=== PATIENT | female | born 1985 | race African-American/Black ===

== ENCOUNTER 2020-05-08 08:53 | Emergency (ER) | payer OTHER, SELFPAY ==
[2020-05-08 09:02] VITALS: BP 142/78; PULSE 111; RESP 16; TEMP 36.8; O2SAT 100
--- NOTE | 2020-05-08 09:05 | ED.EAR ---
HPI - Ear Problem General Chief complaint: Ear Stated complaint: ear pain nausea Time Seen by Provider: 05/08/20 09:07 Source: patient and RN notes reviewed Mode of arrival: ambulatory Limitations: no limitations History of Present Illness HPI Narrative: 34 year old female who presents to [facility] care with complaints of pain to bilateral ears for the past 24 hours.Patient states that she awoke this morning with a sore throat and she has noted some nasal drainage. Patient denies any known fevers, chills or sweats, states no nausea or vomiting, denies any headache pain or any dizziness. Patient states that she took some Advil last evening but has not taken any medication today, Complaint: ear pain and other (sore throat) Location: bilateral Duration: constant Severity: moderate Relieving factors: nothing Exacerbating factors: other (swallowing) Discharge from ear: Reports no Associated symptoms ear: rhinorrhea and other (sore throat) Treatment prior to arrival: other (Advil) Related Data Home Medications Medication Instructions Recorded Confirmed medroxyprogesterone 150 mg IM [id number] 05/08/20 05/08/20 Allergies Allergy/AdvReac Type Severity Reaction Status Date / Time No Known Allergies Allergy Verified 05/08/20 09:06 Review of Systems Review of Systems: Narrative: CONSTITUTIONAL: Denies fever, chills, or sweats. EYES: Denies visual changes, redness, or discharge. ENT: Positive rhinorrhea, congestion, positive sore throat, bilateral otalgia. CARDIOVASCULAR: Denies chest pain, palpitations, or edema. RESPIRATORY: Denies cough or dyspnea. GASTROINTESTINAL: Denies abdominal pain, nausea, vomiting, or diarrhea. GENITOURINARY: Denies dysuria or hematuria. SKIN: Denies rash or itching. MUSCULOSKELETAL: Denies back pain, joint pain, or myalgia. NEUROLOGIC: Denies headache, numbness, or weakness. PSYCHIATRIC: Positive history of anxiety or depression. All systems reviewed & are unremarkable except as noted in HPI and below PMFSH Past Medical History Medical History (Updated 05/08/20 @ 09:34 by Radha Sheikh NP) Anxiety and depression Fracture of left foot Surgical History Surgical History (Updated 05/08/20 @ 09:11 by Radha Sheikh NP) H/O arthroscopy of right knee Previous section Social History Social History (Updated 05/08/20 @ 09:11 by Radha Sheikh NP) Smoking status: Never smoker Living arrangements: with family Gender identity (if verbalized by the patient): Female Comments At time of signature, agree with nursing past medical, surgical, social and family history. There is no relevant family history pertinent to the presenting complaint Exam Narrative: Exam Narrative: GENERAL: Well-appearing, well-nourished, and in no acute distress. HEAD: Normocephalic, atraumatic. EYES: PERRLA and EOMI. ENT: Nares red, clear rhinorrhea no epistaxis. Mucous membranes moist.TM's normal with decrease light reflex, no drainage or swelling of canals, throat red with exudates tonsils enlarged and red. NECK: Supple.no lymphadenopathy CHEST: Clear to auscultation. No respiratory distress.SAO2 100% on room air HEART: Regular rate and rhythm. No murmur heard. Normal peripheral pulses. ABDOMEN: Soft, nontender, nondistended, normal active bowel sounds. EXTREMITIES: Normal range of motion. No edema. SKIN: Warm, dry, no rash. NEURO: No focal deficits. Alert and oriented x3. Medical Decision Making Differential Diagnosis Differential Diagnosis: Bilateral ear otalgia,otitis media, otitis externa, tonsillitis, strep pharyngitis, exudative tonsillitis Medical Records Medical records reviewed: Yes I reviewed the patient's medical records. Lab Data Lab results reviewed: Yes I reviewed the patient's lab results. Lab results narrative: strep screen negative Critical Care Time Critical Care Time Critical Care Time: No Discharge Plan Discharge Clinical Impression: Exudative tonsillitis, Otalgia
[2020-05-08 09:07] VITALS: BP 142/78; PULSE 111; RESP 16; TEMP 36.8; O2SAT 100
== END 2020-05-08 09:45 | disposition home or self-care (01) ==
PROVIDERS: Emergency Provider Registered Nurse
DX: J03.90 Acute tonsillitis, unspecified (principal); H92.03 Otalgia, bilateral
CPT/HCPCS: 87081; 87880; 99213; G0463

== ENCOUNTER 2023-01-07 21:19 | Emergency (ER) | payer OTHER, SELFPAY ==
--- NOTE | 2023-01-07 21:26 | ED.DIZZY ---
HPI - Dizziness General Chief Complaint: Dizziness Stated Complaint: dizziness since 1500 Time Seen by Provider: 01/07/23 21:25 Source: patient and old records reviewed Mode of arrival: ambulatory Limitations: no limitations History of Present Illness HPI Narrative: Patient is a 37 y/o female who presents to the ED with c/o dizziness. Patient reports the dizziness began around 3pm today. She describes the dizziness as feeling lightheaded. Dizziness worse with movements, walking, sitting upright. Patient took a nap, but states when she woke up her dizziness was worse. Patient then developed a headache and nausea, which prompted her presentation. She has not tried anything for symptoms. She has been drinking water today. She denies any vision changes, focal weakness or numbness, vomiting. Patient is currently 13 weeks gestation. STEAM TRAP WORKER is Dr. Dumas. She has had confirmed IUP and recently saw Dr. Dumas at which time everything was normal. Patient mentions having similar dizziness when diagnosed with preeclampsia in her previous . She is not currently on any blood pressure medications, and reports her BP has been stable throughout this thus far. Patient denies abdominal pain, vaginal bleeding, leakage of fluid. Related Data Home Medications Medication Instructions Recorded Confirmed medroxyprogesterone 150 mg/mL 150 mg IM [id number] 05/08/20 05/08/20 intramuscular syringe Allergies Allergy/AdvReac Type Severity Reaction Status Date / Time lisinopril AdvReac Cough Verified 01/07/23 21:20 Review of Systems Review of Systems: CONSTITUTIONAL: Denies fever, chills, or sweats. EYES: Denies visual changes. CARDIOVASCULAR: Denies chest pain. RESPIRATORY: Denies dyspnea. GASTROINTESTINAL: See HPI. GENITOURINARY: Denies dysuria or hematuria. MUSCULOSKELETAL: Denies back pain, joint pain, or myalgia. NEUROLOGIC: See HPI. All systems reviewed & are unremarkable except as noted in HPI and below PMFSH Past Medical History Medical History Anxiety and depression Fracture of left foot Surgical History Surgical History H/O arthroscopy of right knee Previous section Social History Social History Smoking status: Never smoker Living arrangements: with family Gender identity (if verbalized by the patient): Female Exam Narrative: GENERAL: Well appearing, morbidly obese with BMI of 40.3, non-toxic, in no acute distress. HEAD: Normocephalic, atraumatic. EYES: PERRL/EOMI, conjunctivae clear bilaterally. No nystagmus. EARS: TMS clear, with good light reflex. No erythema or bulging. No cerumen impaction. NECK: Supple. No adenopathy, no masses. RESPIRATORY: Airway patent, respirations nonlabored. Clear to auscultation bilaterally, no rales, rhonchi, wheezing. CARDIOVASCULAR: Regular rate and rhythm without murmurs, rubs, or gallops. Radial pulses 2+ and equal bilaterally. ABDOMINAL: Soft, no tenderness throughout abdomen, nondistended, no hepatosplenomegaly. Normoactive BS. MUSCULOSKELETAL: Moves all extremities. Strength/ROM intact without gross deformities. No edema. SKIN: Warm, dry, normal color. No rashes. NEURO: A&O X3. Speech clear. Follows commands. CN II-XII intact. Sensation grossly intact. Steady gait. No ataxic movements. Strength 5/5 in upper and lower extremities bilaterally. Equal member certification manager strength bilaterally. No focal deficits. PSYCHIATRIC: Appropriate mood and affect. Normal interaction. Course Vital Signs Vital signs: Vital Signs Pulse Rate 82 01/07/23 21:29 Blood Pressure 131/89 01/07/23 21:29 Temperature 98 F 01/07/23 22:38 Pulse Rate 71 01/08/23 00:41 Respiratory Rate 16 01/08/23 00:41 Blood Pressure 142/74 H 01/08/23 00:41 Pulse Oximetry 100 01/08/23 00:41
[2023-01-07 21:29] VITALS: BP 131/89; PULSE 82
[2023-01-07 21:30] VITALS: BP 118/86; PULSE 88
[2023-01-07 21:32] VITALS: BP 132/95; PULSE 89
[2023-01-07 21:54] VITALS: PULSE 77
[2023-01-07] MEDS: METOCLOPRAMIDE HCL INJ 10 MG/2 ML VIAL IV PUSH (22:29)
[2023-01-07] MEDS: ACETAMINOPHEN 325 MG TABLET 650 MG PO (22:29)
[2023-01-07] MEDS: SODIUM CHLORIDE 0.9% IV 1,000 ML 999 ML IV CONT ×2 (22:30→22:36)
[2023-01-07] MEDS: MECLIZINE HCL 25 MG TABLET PO (22:36)
[2023-01-07 22:38] VITALS: BP 130/95; PULSE 86; RESP 18; TEMP 36.6; O2SAT 100
[2023-01-08 00:41] VITALS: BP 142/74; PULSE 71; RESP 16; O2SAT 100
== END 2023-01-08 00:42 | disposition home or self-care (01) ==
PROVIDERS: Emergency Provider Physician Assistant; PCP Obstetrics & Gynecology
DX: O99.411 Diseases of the circulatory system complicating pregnancy, first trimester (principal); I95.1 Orthostatic hypotension; R42 Dizziness and giddiness; O09.521 Supervision of elderly multigravida, first trimester; Z3A.13 13 weeks gestation of pregnancy
CPT/HCPCS: 96361; 96374; 99284; A9270; J2765; J7030

== ENCOUNTER 2023-05-21 15:30 | Outpatient (RCR) | payer OTHER, MEDICAID, SELFPAY ==
[2023-05-12 13:30] VITALS: BMI 43.3
[2023-05-12 15:54] VITALS: BMI 43.3
== END 2023-07-27 09:47 | disposition home or self-care (01) ==
LOC: ANHDMC 15:30
PROVIDERS: PCP Obstetrics & Gynecology; Visit Provider Obstetrics & Gynecology
DX: O24.319 Unspecified pre-existing diabetes mellitus in pregnancy, unspecified trimester (principal); Z3A.00 Weeks of gestation of pregnancy not specified; Z71.3 Dietary counseling and surveillance; Z71.89 Other specified counseling
CPT/HCPCS: 97802; G0108

== ENCOUNTER 2023-06-11 12:30 | Outpatient (RCR) | payer OTHER, MEDICAID, SELFPAY ==
[2023-05-27 17:10] VITALS: BP 139/79; PULSE 79
[2023-06-03 15:57] VITALS: BP 121/89; PULSE 92
[2023-06-11 13:12] VITALS: BP 139/97; PULSE 83
== END 2023-08-25 23:59 | disposition home or self-care (01) ==
LOC: ANHOBOP 12:30
PROVIDERS: Visit Provider Obstetrics & Gynecology
DX: O24.419 Gestational diabetes mellitus in pregnancy, unspecified control (principal); O16.3 Unspecified maternal hypertension, third trimester; Z3A.33 33 weeks gestation of pregnancy; Z3A.34 34 weeks gestation of pregnancy; Z3A.35 35 weeks gestation of pregnancy
CPT/HCPCS: 59025; A9270

== ENCOUNTER 2023-06-12 09:33 | Inpatient (IN) | payer OTHER, MEDICAID, SELFPAY ==
[2023-06-12] VITALS (43 sets, daily range): BP systolic 101–164; BP diastolic 54–124; PULSE 70–107; RESP 14–20; TEMP 36.4–36.7; O2SAT 97–100; BMI 44.2
--- NOTE | 2023-06-12 10:53 | LDADM ---
This patient, Skyla Diaz, was admitted to Labor/Delivery/Recovery 119 on 06/12/23 at 09:33. Plans for , pain management and were discussed with patient. Patient/family oriented to hospital policies and general routines including ID bracelet, bed and alarms, visiting hours, pain management, procedures, bathroom and other care routines, personal items, smoking policy, room service/diet and guest tray routines, infant security routines, and visiting hours. Patient/Family are encouraged to report perceived risks to care and to ask questions if they do not understand what they are told or what they should do. See [facility]BIX for further documentation.
[2023-06-12 10:58] LABS: Basophils Percent Auto 0.2 % (0.2-1.2); Eosinophils Percent Auto 0.3 % (0-4.4); Hematocrit 40.3 % (37.0-47.0); Hemoglobin 12.8 g/dL (12.0-15.0); Immature Granulocyte Absolute 0.03 K/mm3 (0.00-0.031); Immature Granulocyte Percent A 0.5 % (0-0.5); Lymphocytes Absolute Auto 1.67 K/mm3 (0.9-3.2); Lymphocytes Percent Auto 28.7 % (18.3-44.2); Mean Corpuscular HGB Conc 31.8 g/dl (32-36); Mean Corpuscular Hemoglobin 28.7 pg (26-34); Mean Corpuscular Volume 90.4 fl (80-100); Mean Platelet Volume 11.6 fl (7.4-10.4); Monocytes Absolute Auto 0.5 K/mm3 (0.1-0.6); Monocytes Percent Auto 7.9 % (2.6-8.5); Neutrophils Absolute Auto 3.6 K/mm3 (1.3-6.7); Neutrophils Percent Auto 62.4 % (45.5-73.1); Platelet Count Result 223 k/mm3 (150-375); Red Blood Count 4.46 M/mm3 (4.2-5.4); Red Cell Distribution Width 13.8 % (11.5-14.5); White Blood Count 5.8 K/mm3 (4.5-10.0)
[2023-06-12] MEDS: AZITHROMYCIN 500 MG/NS 250 ML 500 MG/250 ML BAG 250 MG IVPB (11:00)
[2023-06-12] MEDS: LACTATED RINGERS 1,000 ML 125 ML IV CONT (11:00)
[2023-06-12 11:14] LABS: Uric Acid 6.3 mg/dL (2.5-7.5)
[2023-06-12 11:15] LABS: Alanine Aminotransferase 13 U/L (6-35); Albumin Level 3.6 g/dL (3.5-5.1); Alkaline Phosphatase 226 U/L (38-126); Anion Gap 7 mmol/L (8-16); Aspartate Amino Transferase 22 U/L (14-36); Bilirubin,Total 0.5 mg/dL (0.2-1.3); Blood Urea Nitrogen 5 mg/dL (7-17); Carbon Dioxide 22 mmol/L (22-30); Chloride 108 mmol/L (98-107); Estimated CRCL calculation 126 ml/min; Estimated Glomerular Filt Rate > 60; Glucose 90 mg/dL (65-110); Potassium 4.2 mmol/L (3.4-5.0); Sodium 137 mmol/L (137-145)
[2023-06-12] MEDS: ONDANSETRON INJ 4 MG/2 ML VIAL IV PUSH (11:33)
[2023-06-12] MEDS: FAMOTIDINE 20 MG/2 ML VIAL IV PUSH (11:33)
[2023-06-12 11:58] LABS: Rapid Plasma Reagin Non-Reactive (NonReactive)
--- NOTE | 2023-06-12 12:02 | PM.IMHP ---
H&P: HPI History of Present Illness Date/Time: 06/12/23 12:02 Chief Complaint: Water broke Narrative: 37 y/o at 35 3/7 weeks with a gush of fluid at 0800 today. GDM, diet controlled. CHTN, on ASA 81 mg daily. SROM confirmed with [facility] here on L&D. Prior , desires repeat. Review of Systems Review of Systems: All systems reviewed & are unremarkable except as noted in HPI and below PMFSH Past Medical History Medical History (Updated 06/12/23 @ 12:06 by Miguel Dumas MD) Anxiety and depression Fracture of left foot Surgical History Surgical History (Updated 06/12/23 @ 12:06 by Miguel Dumas MD) H/O arthroscopy of right knee Previous section Family History Family History Other Patient denies significant medical history Social History Social History Smoking status: Never smoker Substance use: never Do You Feel Safe in your Home?: Yes Lack of Transportation: No Lack of Food: Never True Current Housing: I Have Housing Concerned About Future Housing: No Difficulty Paying Gas/Electric Bills: No Difficulty Paying for Meds: No Currently Unemployed: No Education: Bachelor's Degree Difficulty w/ Childcare or Family Care: No Living arrangements: with family Gender identity (if verbalized by the patient): Female Spiritual care concerns: No Meds Home Medications and Allergies Home Medications Medication Instructions Recorded Confirmed Type aspirin 81 mg chewable tablet 81 mg PO DAILY 05/27/23 06/12/23 History vit no.95-ferrous 1 tablet PO DAILY 05/27/23 06/12/23 History fumarate 28 mg-folic acid 800 mcg tablet () Allergies Allergy/AdvReac Type Severity Reaction Status Date / Time lisinopril AdvReac Cough Verified 06/11/23 12:52 Vital Signs Vital Signs - 24 hr 06/12/23 10:47 06/12/23 11:01 06/12/23 11:16 Pulse Rate 98 105 H Blood Pressure 159/106 H 153/97 H Oxygen Delivery Room Air 06/12/23 11:31 06/12/23 11:46 06/12/23 12:01 Pulse Rate 96 90 90 Blood Pressure 154/91 H 157/93 H 160/88 H Oxygen Delivery Exam Const: Orientation/consciousness: patient oriented x3 Other: Well-developed, well-nourished female in no acute distress. Neck: Thyroid: thyroid normal Lymphatic: no lymphadenopathy noted (in neck, axilla or inguinal nodes) Resp: Effort & Inspection: normal respiratory effort Auscultation: clear to auscultation bilaterally Cardio: Rate: regular rate Rhythm: regular rhythm Heart sounds: S1 normal heart sound present and S2 normal heart sound present GI: Other: ABD: Soft, nontender, nondistended, gravid. NST reactive. TOCO: irregular contractions. No guarding or rebound tenderness. No hepatosplenomegaly. : General: Yes no CVA tenderness Other: Deferred. Back/Spine/Pelvis: Back: no CVA tenderness Skin: General skin exam: normal color and no rashes or lesions noted Neuro: General: patient oriented x3 Extrem: Other: Extremities: nontender with no edema Psych: Mental Status: mental status grossly normal Affect: normal affect H&P: Results Labs Labs: Short CBC 06/12/23 Range/Units 10:47 WBC 5.8 (4.5-10.0) K/mm3 Hgb 12.8 (12.0-15.0) g/dL Hct 40.3 (37.0-47.0) % Plt Count 223 (150-375) k/mm3 BMP 06/12/23 10:47 Sodium 137 Potassium 4.2 Chloride 108 H Carbon Dioxide 22 BUN 5 L Creatinine 0.60 L Glucose 90 Calcium 9.0 Liver Function 06/12/23 Range/Units 10:47 Total Bilirubin 0.5 (0.2-1.3) mg/dL AST 22 (14-36) U/L ALT 13 (6-35) U/L Alkaline Phosphatase 226 H (38-126) U/L Albumin 3.6 (3.5-5.1) g/dL Assessment and Plan Assessment and plan (1) PROM (premature rupture of membranes): Code(s): O42.90 - Premature rupture of membranes, unspecified as
--- NOTE | 2023-06-12 12:07 | WPDHPUPDATE1 ---
History and Physical Update Update Date/Time: 06/12/23 12:07 History and Physical has been reviewed, including an updated exam of the patient. There are NO changes in the patient's condition. Risks, benefits, and alternatives have been discussed and questions answered. Patient agrees to proceed with procedure.
[2023-06-12] MEDS: ceFAZolin 2 GM/D5W 50 ML 2 GM/50 ML BAG IVPB (12:18)
[2023-06-12] MEDS: KETOROLAC 30 MG/ML VIAL (*BKC) 15 MG IV PUSH (13:10)
--- NOTE | 2023-06-12 13:19 | W.PM.OBCSD ---
OB - Delivery Note Procedure Delivery date: 06/12/23 Pre-op diagnosis: Previous Delivery and Other (IUP at 35 3/7 weeks; SROM; Prior delivery; A1DM; CHTN) Post-op Diagnosis: Same Induction method: None Delivery monitor: External FHT and External Uterine Procedure Performed: Repeat Surgeon: Miguel Dumas MD Anesthesia type: Spinal Description of Procedure/Findings: Findings: Normal-appearing uterus, tubes and ovaries. Techniques: The patient was taken to the operating room where she was prepared and draped in the usual sterile fashion in dorsal supine position with a leftward tilt. She received cefazolin preoperatively. Spinal anesthesia was found to be adequate. A Pfannenstiel skin incision was made along the previous scar line and was carried through to the underlying layer of the fascia. The fascia was incised in the midline and the incision was extended laterally. The fascia was dissected free of the underlying rectus muscles. The rectus muscles were in the midline. The peritoneum was identified, tented up and entered sharply. The peritoneal incision was extended superiorly and inferiorly with good visualization of the bladder. The bladder blade was placed. The vesicouterine peritoneum was identified, tented up and entered sharply. The incision was extended laterally and the bladder flap was developed. The bladder blade was replaced. The uterus was then incised sharply in a transverse fashion along the lower uterine segment. The incision was extended laterally. The infant's head was delivered atraumatically to the sterile field, followed by the body. The nose and mouth were bulb suctioned. After a delay, the cord was clamped and cut. The was handed off the field. Cord blood was collected. The placenta was removed manually and was passed off the field. The uterus was exteriorized and cleared of all clots and debris. The uterine incision was reapproximated using 0 Monocryl in a running, locked fashion. Excellent hemostasis resulted as did excellent reapproximation of the normal anatomy. The uterus was returned the abdomen. The pelvis was irrigated copiously with warmed normal saline. Rigorous hemostasis was assured. The fascial layer was reapproximated using 0 Vicryl in a running fashion. The skin was closed with a running, subcuticular stitch of 4 0 Vicryl. Dermaflex was applied externally. Sponge, lap, needle and instrument counts were correct. The patient was taken to the recovery room in stable condition. The went to the nursery in stable condition. I was present and scrubbed the entire procedure. Specimen: Yes (cord blood, placenta) Estimated Blood Loss: 200 Drains: Yes (chung) Packing: No Pathology: Yes (Cord blood, placenta) Complications: None Condition: Stable Disposition: PACU [place] Baby Date of : 06/12/23 Time of : 12:48 Weeks of gestation at delivery: 35 gender: Male Weight (pounds): 8 Weight (ounces): 2 presentation: vertex Placenta delivery description: Manual Removal and Normal Configuration Cord Vessel Description: 3 Vessels and Nuchal Cord score one minute: 9 score five minutes: 9
--- NOTE | 2023-06-12 13:24 | PM.OBDSVD ---
DS: Admitting Diagnosis Discharge Date 06/16/23 Admitting Diagnosis IUP at 35 3/7 weeks SROM Prior , desires repeat A1DM CHTN DS: Discharge Diagnosis Discharge Diagnosis (1) Obesity affecting : Code(s): O99.210 - Obesity complicating , unspecified trimester Status: Acute (2) Chronic hypertension affecting : Code(s): O10.919 - Unspecified pre-existing hypertension complicating , unspecified trimester Status: Acute (3) Gestational diabetes mellitus: Code(s): O24.419 - Gestational diabetes mellitus in , unspecified control Status: Acute (4) Previous section: Code(s): Z98.891 - History of uterine scar from previous surgery Status: Acute (5) PROM (premature rupture of membranes): Code(s): O42.90 - Premature rupture of membranes, unspecified as to length of time between rupture and onset of labor, unspecified weeks of gestation Status: Acute OB - DS: Summary OB Procedures : NST OB Procedures Intrapartum: OB Procedures: : None Peripartum Data Procedures: Procedures Operation Date: 06/12/23 12:00 <No data on this case meets the specified criteria> Repeat LTCS Time Spent with Patient Time attestation: Total time spent providing and/or coordinating discharge services: DS: Data Data Completed and Pending Pending studies at discharge: Pending at discharge 06/12/23 12:53 Surgical [PTH] Routine Labs on day of discharge: Labs from last 24 hours 06/12/23 10:47 WBC 5.8 RBC 4.46 Hgb 12.8 Hct 40.3 MCV 90.4 MCH 28.7 MCHC 31.8 L RDW 13.8 Plt Count 223 MPV 11.6 H Immature Gran % (Auto) 0.5 Neut % (Auto) 62.4 Lymph % (Auto) 28.7 [place] % (Auto) 7.9 Eos % (Auto) 0.3 Baso % (Auto) 0.2 Lymph # (Auto) 1.67 [place] # (Auto) 0.5 Eos # (Auto) 0.0 Baso # (Auto) 0.0 Abs Immat Gran (auto) 0.03 Absolute Neuts (auto) 3.6 Absolute Nucleated RBC 0.0 Nucleated RBC % 0.0 Sodium 137 Potassium 4.2 Chloride 108 H Carbon Dioxide 22 Anion Gap 7 L BUN 5 L Creatinine 0.60 L Estim Creat Clear Calc 126 Estimated GFR > 60 Glucose 90 Uric Acid 6.3 Calcium 9.0 Total Bilirubin 0.5 AST 22 ALT 13 Alkaline Phosphatase 226 H Total Protein 7.0 Albumin 3.6 RPR Pending Blood Type O Positive Antibody Screen Negative Discharge Plan Discharge Attending physician on discharge: Miguel Dumas Discharging Clinician: Miguel Dumas Patient Disposition: Home, Self-Care Activity: may shower, may drive after 2 weeks and pelvic rest Diet: regular Wound Care Instructions: incision open to air Discharge Instructions: Call or return if temperature above 100.4? F, increased abdominal pain, increased vaginal bleeding or any new problems. Stand Alone Forms: General Discharge Information Follow-up/Referrals: Miguel Dumas MD [Physician] - 4 Weeks Discharge Medications: New ibuprofen 600 mg tablet 600 mg PO Q6H PRN (Reason: cramps) Qty: 30 0RF hydrocodone-acetaminophen 5-325 mg tablet 1 - 2 tablet PO Q6H PRN (Reason: pain) Qty: 30 0RF nifedipine [Procardia XL] 60 mg tablet extended release 24hr 60 mg PO BID Qty: 60 1RF Continued PNV cmb#95-ferrous fumarate-FA [] 28 mg iron- 800 mcg Tablet 1 tablet PO DAILY Discontinued aspirin 81 mg Tablet,Chewable 81 mg PO DAILY Date of admission: 06/12/23 09:33 Primary Care Provider: PHYSICIAN,YEAST STACKER Admitting Provider: Miguel Dumas Attending physician on admission: Miguel Dumas Condition: Stable
[2023-06-12] MEDS: LIDOCAINE 5% PATCH 1 PATCH TRANSDERM (14:37)
[2023-06-12] MEDS: MORPHINE SULFATE (*CRX) 2 MG/ML INJ IV PUSH (14:43)
[2023-06-12] MEDS: OXYTOCIN 30 UNITS/NS 500 ML 30 UNITS/500 ML BAG 125 UNITS IV CONT (15:54)
[2023-06-12] MEDS: diphenhydrAMINE HCl INJ 50 MG/ML VIAL 25 MG IV PUSH (18:13)
[2023-06-13] VITALS (8 sets, daily range): BP systolic 146–172; BP diastolic 86–97; PULSE 75–93; RESP 16–18; TEMP 36.5–36.9; O2SAT 98–100
[2023-06-13] MEDS: NIFEdipine 10 MG CAPSULE PO (01:27)
[2023-06-13 05:43] LABS: Basophils Percent Auto 0.3 % (0.2-1.2); Eosinophils Percent Auto 0.2 % (0-4.4); Hemoglobin 11.9 g/dL (12.0-15.0); Immature Granulocyte Absolute 0.06 K/mm3 (0.00-0.031); Immature Granulocyte Percent A 0.5 % (0-0.5); Lymphocytes Absolute Auto 1.86 K/mm3 (0.9-3.2); Lymphocytes Percent Auto 15.7 % (18.3-44.2); Mean Corpuscular HGB Conc 31.3 g/dl (32-36); Mean Corpuscular Hemoglobin 28.5 pg (26-34); Mean Corpuscular Volume 90.9 fl (80-100); Monocytes Absolute Auto 1.1 K/mm3 (0.1-0.6); Monocytes Percent Auto 9.6 % (2.6-8.5); Neutrophils Absolute Auto 8.7 K/mm3 (1.3-6.7); Neutrophils Percent Auto 73.7 % (45.5-73.1); Platelet Count Result 217 k/mm3 (150-375); Red Blood Count 4.18 M/mm3 (4.2-5.4); Red Cell Distribution Width 13.7 % (11.5-14.5); White Blood Count 11.9 K/mm3 (4.5-10.0)
[2023-06-13] MEDS: SIMETHICONE 80 MG TAB.CHEW PO ×2 (07:35→15:35)
[2023-06-13] MEDS: MULTIVIT/MIN/PREN/FOL AC/IRON TABLET 1 TAB PO (07:35)
[2023-06-13] MEDS: IBUPROFEN 600 MG TABLET PO ×2 (07:36→15:37)
[2023-06-13] MEDS: DOCUSATE SODIUM 100 MG CAPSULE PO ×2 (07:36→15:35)
[2023-06-13] MEDS: NIFEdipine 30 MG TAB.ER.24 PO ×2 (07:37→19:21)
--- NOTE | 2023-06-13 08:05 | P.PNOB_ITS ---
OB - PN: Subj Subjective Date/time seen: 06/13/23 08:05 Patient comments: no complaints and pain well controlled baby status: doing well OB - PN: Obj Data Labs 06/13/23 05:25 06/12/23 10:47 Labs: Laboratory Results - last 24 hr 06/12/23 06/13/23 10:47 05:25 WBC 5.8 11.9 H RBC 4.46 4.18 L Hgb 12.8 11.9 L Hct 40.3 38.0 MCV 90.4 90.9 MCH 28.7 28.5 MCHC 31.8 L 31.3 L RDW 13.8 13.7 Plt Count 223 217 MPV 11.6 H 11.0 H Immature Gran % (Auto) 0.5 0.5 Neut % (Auto) 62.4 73.7 H Lymph % (Auto) 28.7 15.7 L [place] % (Auto) 7.9 9.6 H Eos % (Auto) 0.3 0.2 Baso % (Auto) 0.2 0.3 Lymph # (Auto) 1.67 1.86 [place] # (Auto) 0.5 1.1 H Eos # (Auto) 0.0 0.0 Baso # (Auto) 0.0 0.0 Abs Immat Gran (auto) 0.03 0.06 H Absolute Neuts (auto) 3.6 8.7 H Absolute Nucleated RBC 0.0 0.0 Nucleated RBC % 0.0 0.0 Sodium 137 Potassium 4.2 Chloride 108 H Carbon Dioxide 22 Anion Gap 7 L BUN 5 L Creatinine 0.60 L Estim Creat Clear Calc 126 Estimated GFR > 60 Glucose 90 Uric Acid 6.3 Calcium 9.0 Total Bilirubin 0.5 AST 22 ALT 13 Alkaline Phosphatase 226 H Total Protein 7.0 Albumin 3.6 RPR Non-reactive Blood Type O Positive Antibody Screen Negative OB - PN A/P Time Spent With Patient Time: Total time spent is greater than 50% in coordination of care (as documented) at patient's floor/unit and/or counseling patient: Exam Narrative: inc c/d/i fundus firm, nt
--- NOTE | 2023-06-13 09:53 | WPDANLDPN2 ---
Anes-Prog Note L&D Date/Time: 06/13/23 09:53 Comfortable throughout: section Neuraxial method: spinal Epidural/Spinal procedure site: clean & non-tender Neuro status: Neuro function grossly intact. Cardiovascular status: normal Respiratory status: normal Airway patency: baseline Mental status: baseline Post-Op hydration status: normal Vital Signs: Last Vital Signs Temp 98.4 F 06/13/23 00:00 Pulse 93 06/13/23 00:00 Resp 18 06/13/23 00:00 BP 153/93 H 06/13/23 05:56 Pulse Ox 98 06/13/23 00:00 O2 Del Method Room Air 06/12/23 13:21 Pain score (VAS): 3 I/O: Intake & Output 06/12/23 06/13/23 06/13/23 23:59 07:59 15:59 Output Total 200 600 Balance -200 -600 Post-procedural complaints: pruritis moderate, treatment effective Patient feedback: Patient satisfied with anesthetic care.
--- NOTE | 2023-06-13 09:54 | WPDANLDNPN2 ---
Anes-Prog Note L&D-Neuraxial Date/Time: 06/13/23 09:54 Neuraxial medications: intrathecal PF morphine Opiod-related complaints: pruritis moderate, treatment effective Patient feedback: Patient satisfied with post-operative pain management.
[2023-06-13] MEDS: HYDROcodone/acetaminophen (*CRX) 5-325 MG TABLET 1 TAB PO (15:36)
[2023-06-14] VITALS (9 sets, daily range): BP systolic 143–163; BP diastolic 88–101; PULSE 88–107; RESP 18; TEMP 36.1–36.6; O2SAT 97–100
[2023-06-14] MEDS: SIMETHICONE 80 MG TAB.CHEW PO (03:22)
[2023-06-14] MEDS: IBUPROFEN 600 MG TABLET PO ×3 (03:22→18:38)
[2023-06-14] MEDS: HYDROcodone/acetaminophen (*CRX) 10-325 MG TABLET 1 TAB PO ×4 (03:24→15:35)
[2023-06-14] MEDS: ASPIRIN 81 MG CHEWABLE TABLET PO (07:53)
[2023-06-14] MEDS: MULTIVIT/MIN/PREN/FOL AC/IRON TABLET 1 TAB PO (07:53)
[2023-06-14] MEDS: DOCUSATE SODIUM 100 MG CAPSULE PO ×2 (07:54→15:37)
[2023-06-14] MEDS: NIFEdipine 30 MG TAB.ER.24 60 MG PO (08:54)
--- NOTE | 2023-06-14 09:41 | P.PNOB_ITS ---
OB - PN: Subj Subjective Date/time seen: 06/14/23 0825 Interval history: Doing well. Urinating without difficulty. Denies passing any large clots. Denies dizziness with ambulating. Tolerating po food and fluids. Bonding with infant. Baby well. Desires DC home. Discussed CHTN and BP medication. Patient comments: no complaints and pain well controlled baby status: doing well and nursing well [place] feeding status: exclusively breast feeding OB - PN: Obj Data Labs 06/13/23 05:25 06/12/23 10:47 OB - PN A/P Plan day: 2 Plan: routine care Time Spent With Patient Time: Total time spent is greater than 50% in coordination of care (as documented) at patient's floor/unit and/or counseling patient: Review of Systems Review of Systems: All systems reviewed & are unremarkable except as noted in HPI and below Exam Const: General: cooperative, no acute distress and awake Kahlil entation/consciousness: patient oriented x3 Limitations: no limitations Resp: Effort & Inspection: normal respiratory effort and able to speak in complete sentences Auscultation: clear to auscultation bilaterally Cardio: Rate: regular rate Peripheral pulses: Peripheral pulses 2+ throughout GI: Inspection: normal to inspection Auscultation: normal bowel sounds : General: Yes bladder normal to palpation Speculum Exam - Vagina: vagina l bleeding Bimanual exam- vagina & uterus: bladder normal to palpation OB/external & speculum: vaginal bleeding Other: Fundus firm Skin: General skin exam: normal color Other: Incision C/D/I Neuro: General: patient oriented x3 Cognition (Neuro): normal cognition Speech: normal speech Extrem: General: normal to inspection Psych: Appearance: grossly normal Mental Status: mental status grossly normal Speech and movement: Normal speech and movement present Affect: normal affect Attitude: cooperative Thought process: Normal thought process present
[2023-06-14] MEDS: ONDANSETRON HCL ODT 4 MG TABLET (12:22)
[2023-06-14] MEDS: LIDOCAINE 5% PATCH 1 PATCH TRANSDERM (13:19)
[2023-06-14] MEDS: HYDROcodone/acetaminophen (*CRX) 5-325 MG TABLET 1 TAB PO ×2 (18:38→23:51)
[2023-06-15] VITALS (8 sets, daily range): BP systolic 133–177; BP diastolic 72–101; PULSE 88–111; RESP 16–18; TEMP 36.9–37.1; O2SAT 98–100
[2023-06-15] MEDS: NIFEdipine 10 MG CAPSULE PO (00:29)
[2023-06-15] MEDS: ASPIRIN 81 MG CHEWABLE TABLET PO (07:38)
[2023-06-15] MEDS: NIFEdipine 30 MG TAB.ER.24 90 MG PO (07:39)
[2023-06-15] MEDS: DOCUSATE SODIUM 100 MG CAPSULE PO ×2 (07:39→15:29)
[2023-06-15] MEDS: MULTIVIT/MIN/PREN/FOL AC/IRON TABLET 1 TAB PO (07:40)
[2023-06-15] MEDS: HYDROcodone/acetaminophen (*CRX) 5-325 MG TABLET 1 TAB PO ×3 (07:40→23:17)
[2023-06-15] MEDS: IBUPROFEN 600 MG TABLET PO ×3 (07:41→23:18)
[2023-06-15] MEDS: SIMETHICONE 80 MG TAB.CHEW PO (07:41)
[2023-06-15] MEDS: LIDOCAINE 5% PATCH 1 PATCH TRANSDERM (07:45)
--- NOTE | 2023-06-15 12:30 | PM.OBPNVD ---
OB - PN: Subj Subjective Date/time seen: 06/15/23 12:31 Narrative: Pain OK. Tolerating diet. OB - PN: Obj Data Labs 06/13/23 05:25 06/12/23 10:47 OB - PN A/P Plan Comments: A: POD#3, doing well. HTN, on Procardia. P: Routine care. Plan home tomorrow. Exam Narrative: AVSS I/O OK ABD soft, nontender, fundus firm. Incision c/d/i. EXT nontender
--- NOTE | 2023-06-15 12:43 | PC.NURSE ---
[id number] Introductions were made, then consulted with patient to assess needs related to . Mother led the conversation with her?plans to feed?her infant and the?experience so far. Encouraged understanding of the benefits of skin to skin (demonstrating unwrapping and placing upright on her chest), stimulating with massage touch, changing positions to encourage wakefulness, how to watch for early feeding cues, responsive feeding, feeding on demand (aiming for 8-12 times in 24 hours, about every 2-3 hours), milk production, building/maintaining a milk supply, duration of feeding, signs of adequate intake/output and how to record on the feeding sheet. Mother works well with her with encouragement and education. Reviewed positioning and ear, shoulder, hip alignment, supporting the breast to facilitate a deep latch, asymmetrical latch (off-center), leading with the chin with a big, open, wide gape and body close to mother. Infant latched optimally to the left breast in cross cradle position. Education given to the mother of how to visualize the suckling (with good rocking jaw motion), swallows (dropping of the lower jaw) and how to listen for drinking at the breast (the ka sound) which infant demonstrated very well. Infant was able to maintain latch without pain to mother protecting the nipple with optimal positioning and latching. Reviewed comfort measures of healing with a warm, wet washcloth to rinse breast, then leave open to air-dry, good handwashing when or touching the breast/nipples to prevent infection. Mother voiced understanding of skin to skin, stimulating with massage touch, responsive feedings, hand expressed colostrum, talking to to encourage if it has been 2 -2.5 hours since the start of the last , to call if infant does not latch, difficulty waking to breastfeed, or if there is discomfort with . Resources used for education were facilitated with the visual educational handouts, demonstration of stimulating, tool, mom and baby guide. Inpatient/outpatient resources provided with feeding sheet, name written on the communication board, and the mom/baby guide. Parents voiced understanding of information, demonstrated learning and will call if there is a request for assistance.
[2023-06-15] MEDS: NIFEdipine 30 MG TAB.ER.24 PO (20:30)
[2023-06-16 00:30] VITALS: BP 158/97
[2023-06-16] MEDS: HYDROcodone/acetaminophen (*CRX) 5-325 MG TABLET 1 TAB PO ×4 (05:40→21:20)
[2023-06-16] MEDS: IBUPROFEN 600 MG TABLET PO ×2 (05:41→16:44)
[2023-06-16 07:50] VITALS: BP 148/93; PULSE 97; RESP 16; TEMP 36.7; O2SAT 98
--- NOTE | 2023-06-16 09:06 | PM.OBPNVD ---
OB - PN: Subj Subjective Date/time seen: 06/16/23 09:06 Narrative: Pain OK. Tolerating diet. Baby will stay tonight. OB - PN: Obj Data Labs 06/13/23 05:25 06/12/23 10:47 OB - PN A/P Plan Comments: A: POD#4, doing well. BP better. P: Home to f/u 4 weeks. Exam Narrative: AVSS ABD soft, nontender, fundus firm. Incision c/d/i. EXT nontender
[2023-06-16] MEDS: DOCUSATE SODIUM 100 MG CAPSULE PO ×2 (09:09→16:44)
[2023-06-16] MEDS: LIDOCAINE 5% PATCH 1 PATCH TRANSDERM (09:10)
[2023-06-16] MEDS: NIFEdipine 30 MG TAB.ER.24 60 MG PO ×2 (09:10→21:20)
[2023-06-16] MEDS: MULTIVIT/MIN/PREN/FOL AC/IRON TABLET 1 TAB PO (09:10)
--- NOTE | 2023-06-16 11:47 | PC.NURSE ---
Patient viewed the discharge video Mother & Baby Care, The First Two Weeks . Patient was given the opportunity and encouraged to ask questions. Patient verbalized understanding of information shared and has been given the mother/baby guide for home reference.
[2023-06-16 12:21] VITALS: BP 157/92; PULSE 100; RESP 18; TEMP 36.6; O2SAT 100
--- NOTE | 2023-06-16 14:23 | PC.NURSE ---
[id number] Purposefully rounded to assess needs related to . Discussed with mother her successes, concerns and any questions she has. We reviewed working with the infant, supporting breast, protecting her nipples with an optimal deep latch, good positioning, and good hand washing. Encouraged understanding the benefits of skin to skin, responding to feeding cues, frequencies of feeding 8-12 times in 24 hours (approximately 2-3 hours), duration of feedings, milk production, intake/output feeding sheet and signs of adequate intake encouraging swallowing at the breast. Mother independently latched infant optimally to the left breast in cradle position. We reviewed the risks and benefits of bottle/formula feeding in the early days and how to protect the breast milk supply. Education given to the mother of how to visualize the suckling (with good rocking jaw motion) swallows (dropping of the lower jaw) and how to listen for drinking at the breast (the ka sound) with demonstrated. The was able to maintain latch without discomfort to mother. Nipple care reviewed with optimal latch, good positioning and using clean hands when touching her breast. Resources used to facilitate learning were used from the visual handout for paced bottle feeding, pumping, and education on how to know if infant is getting enough. Parents voiced understanding of the education shared, to call for assistance if the does not latch, difficulty waking to breastfeed, or if there is discomfort with .
[2023-06-16 19:10] VITALS: BP 143/86; PULSE 98; RESP 18; TEMP 36.6; O2SAT 98
--- NOTE | 2023-06-17 09:37 | PC.NURSE ---
0800- In patient room to perform follow up appointment. Patient Quiet upon assessment, answering questions with only yes and no answers. Half way through assessment Dr. Anton entered room to give update about infant plan of care. Dr. Anton explaining that baby will need to have 48 hrs of weight gain before he can be discharged. Patient unhappy with this information, getting increasingly aggitated. After a few minutes of conversation, patient asked Dr. Anton to leave the room, she stepped out. I asked patient if i could finish her assessment, she stated No get the F out of my room. This nurse left room to give report to patient nurse. Patient screaming and sobbing can be heard from room at this time. Security called to floor.
== END 2023-06-16 21:30 | disposition home or self-care (01) | DRG 787 ==
LOC: ANHLDR 13:26 → ANHOB2 16:01
PROVIDERS: Admitting Provider Obstetrics & Gynecology; Visit Provider Obstetrics & Gynecology
DX: O34.219 Maternal care for unspecified type scar from previous cesarean delivery (principal); O10.92 Unspecified pre-existing hypertension complicating childbirth; O42.913 Preterm premature rupture of membranes, unspecified as to length of time between rupture and onset of labor, third trimester; O99.214 Obesity complicating childbirth; O69.81X0 Labor and delivery complicated by cord around neck, without compression, not applicable or unspecified; O24.420 Gestational diabetes mellitus in childbirth, diet controlled; Z3A.35 35 weeks gestation of pregnancy; Z37.0 Single live birth
CPT/HCPCS: 36415; 59025; 80053; 84550; 85025; 86592; 86850; 86900; 86901; 88307; A9270; J0456; J0690; J1200; J1885; J2270; J2274; J2371; J2405; J2590; J7120